=== PATIENT | female | born 2000 | race Caucasian/White ===

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

== ENCOUNTER 2020-05-19 07:44 | Outpatient (CLI) | payer SELFPAY ==
[2020-05-24 01:23] LABS: SARS-CoV-2 RNA Undetected (Undetected); SARS-CoV-2 Specimen Source Nasopharynx
== END 2020-05-19 08:04 ==
PROVIDERS: PCP Nurse Practitioner; Visit Provider Internal Medicine
DX: Z11.59 Encounter for screening for other viral diseases (principal)
CPT/HCPCS: U0003

== ENCOUNTER 2021-06-28 17:24 | Emergency (ER) | payer SELFPAY ==
[2021-06-28 17:36] VITALS: BP 125/83; PULSE 80; RESP 18; TEMP 36.9; O2SAT 97
--- NOTE | 2021-06-28 17:36 | ED.GENADUL_ITS ---
Discharge Plan Disposition Patient Disposition: HOME Condition: Stable Discharge Details Clinical Impression: Finger laceration Primary Care Provider: Yoly Galloway ED Provider: Mandi Palumbo Home Meds and New Rx's Prescriptions: New cephalexin 500 mg capsule 500 mg PO TID 5 Days Qty: 15 RF: 0 Discharge Instructions Instructions: Finger Laceration (ED) Additional Instructions: Keep wound clean and dry. Cover wound with bandage if risk of contamination. Otherwise you can keep the wound open to air if resting at home to allow edges to dry and heal. A prescription for antibiotics was sent electronically to your pharmacy. If you develop any local redness, swelling or pain, start the antibiotics immediately. Return to the emergency department and 1 week for suture removal. Return immediately to the emergency department if you develop any worsening or new concerning symptoms. Discharge Data Discharge Date/Time-TO BE ENTERED AT DEPARTURE: 06/28/21 19:16 Discharge Physician: Mandi Palumbo Medical Decision Making 20yo female who presents with right fifth finger laceration sustained on a broken place of glass while cleaning a glass in the sink at home prior to arrival. She has a 2.5 cm V-shaped linear laceration on the medial aspect of the base of the right fifth finger. No obvious foreign bodies noted. No bony deformity. Wound cleaned in saline and Betadine. Finger anesthetized with digital block and 5 nylon 5-0 sutures placed. Wound dressed. Advised on the importance of proper wound care. Prescription for antibiotics sent electronically to her pharmacy if needed. Advised to return to the ED in 7 days for suture removal. Usual and customary return precautions given prior to discharge. HPI General Mode of arrival: ambulatory . Date/Time Provider Initiated Documentation: 06/28/21 17:36 . Limitations to Documentation: no limitations . Information obtained by: patient . HPI Narrative: Patient is a 20-year-old female presents with laceration to the right fifth finger sustained while cleaning a glass in the sink that broke prior to arrival. Patient states the piece of glass broke and cut her finger. She states the piece of glass is intact and denies any known foreign bodies. Immunizations up-to-date. Related Data Home Medications Medication Instructions Recorded Confirmed cephalexin 500 mg PO TID 5 Days #15 cap 06/28/21 Previous Rx's Medication Instructions Recorded cephalexin 500 mg PO TID 5 Days #15 cap 06/28/21 Allergies Allergy/AdvReac Type Severity Reaction Status Date / Time No Known Allergies Allergy Unverified 06/28/21 17:38 Review of Systems All systems reviewed & are unremarkable except as noted in HPI and below PFSH Medical History (Updated 06/28/21 @ 19:00 by Mandi Palumbo DO) No significant past medical history Surgical History (Updated 06/28/21 @ 18:35 by Mandi Palumbo DO) No significant past surgical history Social History Smoking risk assessment performed?: No Alcohol Intake: current Alcohol Intake frequency: a few times a week Drug use: Occasionally Substance use type: marijuana Do you feel safe at home: Yes Do you feel safe in your relationship?: Yes Exam Const General: cooperative, healthy appearing and no acute distress HENMT Head: normal to inspection Mouth: oral mucosae normal Eyes General: appearance normal, both eyes and all related structures Neck Neck: normal visual inspection Resp Effort & Inspection: normal respiratory effort and able to speak in complete sentences Cardio Rate: regular rate Skin General skin exam: no rashes or lesions noted Neuro General: patient alert, patient awake and patient oriented x3 Motor: muscle tone normal throughout Extrem Hand/finger images: 1. 2.5 cm V-shaped laceration extending through dermis on medial aspect of base of right fifth finger. Edges clean and intact. No foreign bodies noted. Other: Motor/sensory grossly intact to right fifth finger. There is no bony deformity. Psych Appearance: grossly normal Affect: normal affect Procedures Laceration Laceration 1: Side (If applicable): right Size (cm): 2.5 Description: linear (v-shaped) Depth: simple, single layer Amount of anesthesia used (mL): 4 Pre-repair: wound explored and irrigated extensively Skin layer closed with: nylon Size (cm): 5-0 Number of sutures: 5 Technique: simple, interrupted
--- NOTE | 2021-06-28 19:05 | NUR.NOTE ---
Nursing Note: Right finger wound and hand cleansed. Bacitracin oint applied to wound and band aid applied over wound.
== END 2021-06-28 19:16 | disposition home or self-care (01) ==
PROVIDERS: Emergency Provider Physician Assistant; PCP Nurse Practitioner
DX: S61.216A Laceration without foreign body of right little finger without damage to nail, initial encounter (principal); W25.XXXA Contact with sharp glass, initial encounter
CPT/HCPCS: 12001

== ENCOUNTER 2021-08-27 13:21 | Outpatient (REF) | payer SELFPAY ==
[2021-08-29 02:26] LABS: COVID-19 RT-PCR UVMMC Result Negative (Negative)
== END 2021-08-27 13:22 | disposition home or self-care (01) ==
LOC: LBN 13:21
PROVIDERS: PCP Nurse Practitioner; Visit Provider Internal Medicine
DX: Z20.822 Contact with and (suspected) exposure to COVID-19 (principal)
CPT/HCPCS: U0003

== ENCOUNTER 2022-10-23 16:32 | Emergency (ER) | payer SELFPAY ==
[2022-10-23 16:43] VITALS: BP 128/70; PULSE 108; RESP 18; TEMP 37.2; O2SAT 97
--- NOTE | 2022-10-23 18:00 | RT.EKG_ITS ---
APPROVED REPORT Exam: Resting ECG Reason for Exam: DIZZY Patient Location: E HR:90 bpm ECG Measurements Heart Rate 90 AXIS MA 147 P 40 QRSd 97 QRS 32 QT 333 T 15 QTc 407 Conclusion Sinus rhythm...normal P axis, V-rate 60- 99 Probable left atrial enlargement...P >50mS, <-0.10mV V1
[2022-10-23] MEDS: Normal Saline 1,000 ML 1000 ML IV (18:08)
[2022-10-23 18:13] LABS: Abs Immature Grans 0.04 10^3/uL (0.0-0.06); Absolute Basophil Count 0.04 10^3/uL (0.0-0.2); Absolute Eosinophil Count 0.01 10^3/uL (0.0-0.7); Absolute Lymphocyte Count 0.43 10^3/uL (1.2-3.4); Absolute Monocyte Count 1.36 10^3/uL (0.1-0.8); Absolute Neutrophil Count 6.54 10^3/uL (1.2-6.7); Basophils % 0.5; Eosinophils % 0.1; HCT 40.3 % (36.0-46.0); HGB 13.4 g/dL (11.2-15.7); Immature Grans % 0.5; Lymphocytes % 5.1; MCH 29.4 pg (27.0-33.0); MCHC 33.3 % (32.0-36.0); MCV 88 fL (80-95); Monocytes % 16.2; Neutrophils % 77.6; Platelet Count 180 10^3/uL (130-400); RBC 4.56 10^6/uL (3.93-5.22); RDW 12.2 % (11.7-14.6); RDW-SD 39.8 fL; WBC 8.42 10^3/uL (4.4-10.8)
[2022-10-23 18:29] LABS: ALT 29 U/L (14-59); AST 44 U/L (15-37); Albumin 4.2 g/dL (3.4-5.0); Alkaline Phosphatase 74 U/L (46-116); Anion Gap 12.9 mmol/L (3-11); BUN 10 mg/dL (7-18); Bilirubin, Total 0.5 mg/dL (0.2-1.0); CO2 24.1 mmol/L (21.0-32.0); CREATININE 0.8 mg/dL (0.55-1.02); Calcium 8.7 mg/dL (8.5-10.1); Chloride 99 mmol/L (98-107); Estimated GFR 106.77 (mL/min/1.73m2); Glucose 100 mg/dL (74-106); Magnesium 1.5 mg/dL (1.8-2.4); Potassium 3.6 mmol/L (3.5-5.1); Sodium 136 mmol/L (136-145); Total Protein 8.6 g/dL (6.4-8.2)
[2022-10-23 18:43] LABS: D-Dimer 328 ng/mlFEU (<500)
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
[2022-10-23 18:49] LABS: COVID-19 PCR Negative (Negative); Influenza A PCR Positive (Negative); Influenza B PCR Negative (Negative); RSV PCR Negative (Negative)
[2022-10-23 18:50] LABS: Source Nasopharynx
--- NOTE | 2022-10-23 19:13 | DI.VRAD_ITS ---
PROCEDURE INFORMATION: Exam: XR Chest Exam date and time: 10/23/2022 6:42 PM Age: 22 years old Clinical indication: Cough TECHNIQUE: Imaging protocol: Radiologic exam of the chest. Views: 1 view. COMPARISON: No relevant prior studies available. FINDINGS: Lungs: Chronic interstitial prominence. No consolidation. Pleural spaces: Unremarkable. No pleural effusion. No pneumothorax. Heart/Mediastinum: Unremarkable. No cardiomegaly. Bones/joints: Unremarkable. IMPRESSION: No radiographic evidence for pneumonia Chronic findings. Comparison with prior images would be helpful Dictated and Authenticated by: Vidal Huerta MD. Ordering:LUCIE Moss MD
[2022-10-23] MEDS: MAGNESIUM SULFATE 1 GM/100 ML BAG IVPB (19:14)
[2022-10-23 20:33] VITALS: BP 115/73; PULSE 90; RESP 16; TEMP 36.7; O2SAT 98
--- NOTE | 2022-10-23 20:43 | ED.GENADUL_ITS ---
Discharge Plan Disposition Patient Disposition: Home Condition: Improving Discharge Details Clinical Impression: Influenza A Primary Care Provider: Yoly Galloway ED Provider: Ajay Castillo Home Meds and New Rx's Prescriptions: No Action No Known Home Meds Discharge Instructions Instructions: Influenza (ED) Additional Instructions: Home to rest tonight. Small, frequent sips of fluids to maintain hydration Return to ER for any acute concerns Stand Alone Forms: Work Release Discharge Data Discharge Date/Time-TO BE ENTERED AT DEPARTURE: 10/23/22 22:03 Medical Decision Making 22-year-old female here with dizziness today, URI symptoms over the past week. Patient saturating well no respiratory distress but is slightly tachycardic on arrival. Considered arrhythmia. EKG was reviewed and interpreted by me: Please see report, sinus rhythm. Consider pneumonia. Chest x-ray was reviewed and interpreted by radiology: No radiographic evidence for pneumonia Considered pulmonary embolism. Patient low risk by Wells criteria. D-dimer was checked and negative. Hypomagnesemia noted. Patient was given magnesium 1 g IV. COVID testing performed and negative. Flu testing performed and positive. Plan for supportive care. Patient was reassessed and tachycardia resolved. Patient stable. Usual customary discharge instructions were reviewed with the patient. Lab Data Lab results reviewed: Yes I reviewed the patient's lab results. Labs: Laboratory Tests Range/Units 10/23/22 10/23/22 10/23/22 18:00 18:00 18:00 WBC (4.4-10.8) 10^3/uL 8.42 RBC (3.93-5.22) 10^6/uL 4.56 Hgb (11.2-15.7) g/dL 13.4 Hct (36.0-46.0) % 40.3 MCV (80-95) fL 88 MCH (27.0-33.0) pg 29.4 MCHC (32.0-36.0) % 33.3 RDW (11.7-14.6) % 12.2 Plt Count (130-400) 10^3/uL 180 MPV (8.0-11.0) fL 9.0 Immature Gran % 0.5 Neutrophils % 77.6 Lymphocytes % 5.1 Monocytes % 16.2 Eosinophils % 0.1 Basophils % 0.5 Nucleated RBC % (0.0-0.3) % 0.0 Absolute Neutrophils (1.2-6.7) 10^3/uL 6.54 Absolute Lymphocytes (1.2-3.4) 10^3/uL 0.43 L Absolute Monocytes (0.1-0.8) 10^3/uL 1.36 H Absolute Eosinophils (0.0-0.7) 10^3/uL 0.01 Absolute Basophils (0.0-0.2) 10^3/uL 0.04 D-Dimer (<500) ng/mlFEU Sodium (136-145) mmol/L 136 Potassium (3.5-5.1) mmol/L 3.6 Chloride (98-107) mmol/L 99 Carbon Dioxide (21.0-32.0) mmol/L 24.1 Anion Gap (3-11) mmol/L 12.9 H BUN (7-18) mg/dL 10 Creatinine (0.55-1.02) mg/dL 0.8 Est GFR (CKD-EPI 2020) (mL/min/1.73m2) 106.77 Glucose (74-106) mg/dL 100 Calcium (8.5-10.1) mg/dL 8.7 Magnesium (1.8-2.4) mg/dL 1.5 L Total Bilirubin (0.2-1.0) mg/dL 0.5 AST (15-37) U/L 44 H ALT (14-59) U/L 29 Alkaline Phosphatase (46-116) U/L 74 Total Protein (6.4-8.2) g/dL 8.6 H Albumin (3.4-5.0) g/dL 4.2 COVID-19 Source Nasopharynx SARS-CoV-2 (PCR) (Negative) Negative Influenza Type A (PCR) (Negative) Positive A Influenza Type B (PCR) (Negative) Negative RSV (PCR) (Negative) Negative Range/Units 10/23/22 18:00 WBC (4.4-10.8) 10^3/uL RBC (3.93-5.22) 10^6/uL Hgb (11.2-15.7) g/dL Hct (36.0-46.0) % MCV (80-95) fL MCH (27.0-33.0) pg MCHC (32.0-36.0) % RDW (11.7-14.6) % Plt Count (130-400) 10^3/uL MPV (8.0-11.0) fL Immature Gran % Neutrophils % Lymphocytes % Monocytes % Eosinophils % Basophils % Nucleated RBC % (0.0-0.3) % Absolute Neutrophils (1.2-6.7) 10^3/uL Absolute Lymphocytes (1.2-3.4) 10^3/uL Absolute Monocytes (0.1-0.8) 10^3/uL Absolute Eosinophils (0.0-0.7) 10^3/uL Absolute Basophils (0.0-0.2) 10^3/uL D-Dimer (<500) ng/mlFEU 328 Sodium (136-145) mmol/L Potassium (3.5-5.1) mmol/L Chloride (98-107) mmol/L Carbon Dioxide (21.0-32.0) mmol/L Anion Gap (3-11) mmol/L BUN (7-18) mg/dL Creatinine (0.55-1.02) mg/dL Est GFR (CKD-EPI 2020) (mL/min/1.73m2) Glucose (74-106) mg/dL Calcium (8.5-10.1) mg/dL Magnesium (1.8-2.4) mg/dL Total Bilirubin (0.2-1.0) mg/dL AST (15-37) U/L ALT (14-59) U/L Alkaline Phosphatase (46-116) U/L Total Protein (6.4-8.2) g/dL Albumin (3.4-5.0) g/dL COVID-19 Source SARS-CoV-2 (PCR) (Negative) Influenza Type A (PCR) (Negative) Influenza Type B (PCR) (Negative) RSV (PCR) (Negative) HPI General Mode of arrival: ambulatory . Date/Time Provider Initiated Documentation: 10/23/22 17:28 . Limitations to Documentation: no limitations . Information obtained by: patient . HPI Narrative: 22-year-old female here with cold symptoms of the past 1 week. Today she notes associated lightheadedness and dizziness. Lightheadedness moderate. No modifiers. She continues to have some associated achiness, cough and congestion. Patient works at [employer] and [employer] and has been testing herself for COVID 3 times a day. Test of been negative to date. Related Data Home Medications Medication Instructions Recorded Confirmed Unknown [No Known Home Meds] 10/23/22 10/23/22 Allergies Allergy/AdvReac Type Severity Reaction Status Date / Time No Known Allergies Allergy Unverified 10/23/22 16:48 General Stated Complaint: Dizzy/Sync JUNIOR: 3 Review of Systems All systems reviewed & are unremarkable except as noted in HPI and below Constitutional Constitutional: Reports as per HPI and Reports lethargy ENT Comments: Congestion Respiratory Respiratory: Reports cough PFSH All Active Problems Finger laceration (Acute) Influenza A (Acute) Medical History No significant past medical history Surgical History No significant past surgical history Social History Smoking/Tobacco Use Status: Current every day Tobacco Type: e-cigarettes Smoking risk assessment performed?: Yes Alcohol Intake: current Alcohol Intake frequency: a few times a week Drug use: Occasionally Substance use type: marijuana Do you feel safe at home: Yes Do you feel safe in your relationship?: Yes Exam Const General: cooperative and no acute distress HENMT Mouth: moist mucous membranes Throat: posterior oropharynx normal Eyes Conjunctivae: normal conjunctivae Sclera: normal sclerae Neck Neck: trachea midline and supple Resp Auscultation: clear to auscultation bilaterally, no rales, no rhonchi and no wheezes Cardio Rate: regular rate and not tachycardic Rhythm: regular rhythm GI Palpation: soft, not firm, no guarding, no masses, not rigid and nontender Skin General skin exam: no rashes or lesions noted Neuro General: patient alert, patient awake, patient oriented x3 and tone normal Extrem General: no edema Course Vital Signs Vital signs: Vital Signs Temperature 37.2 C 10/23/22 16:43 Pulse 108 H 10/23/22 16:43 Respiratory Rate 18 10/23/22 16:43 Blood Pressure 128/70 10/23/22 16:43 Pulse Oximetry 97 10/23/22 16:43 Temperature 36.7 C 10/23/22 20:33 Temperature Source Tympanic 10/23/22 20:33 Pulse 90 10/23/22 20:33 Respiratory Rate 16 10/23/22 20:33 Respiratory Effort Non-Labored 10/23/22 16:46 Blood Pressure 115/73 10/23/22 20:33 Blood Pressure Position Sitting 10/23/22 16:43 Pulse Oximetry 98 10/23/22 20:33 Oxygen Delivery Method Room Air 10/23/22 20:33 Oxygen Flow Rate 0 10/23/22 20:33 Pain Level 6 10/23/22 16:43 Lab/Test Results Lab/Test Results: Laboratory Tests Range/Units 10/23/22 10/23/22 10/23/22 18:00 18:00 18:00 WBC (4.4-10.8) 10^3/uL 8.42 RBC (3.93-5.22) 10^6/uL 4.56 Hgb (11.2-15.7) g/dL 13.4 Hct (36.0-46.0) % 40.3 MCV (80-95) fL 88 MCH (27.0-33.0) pg 29.4 MCHC (32.0-36.0) % 33.3 RDW (11.7-14.6) % 12.2 Plt Count (130-400) 10^3/uL 180 MPV (8.0-11.0) fL 9.0 Immature Gran % 0.5 Neutrophils % 77.6 Lymphocytes % 5.1 Monocytes % 16.2 Eosinophils % 0.1 Basophils % 0.5 Nucleated RBC % (0.0-0.3) % 0.0 Absolute Neutrophils (1.2-6.7) 10^3/uL 6.54 Absolute Lymphocytes (1.2-3.4) 10^3/uL 0.43 L Absolute Monocytes (0.1-0.8) 10^3/uL 1.36 H Absolute Eosinophils (0.0-0.7) 10^3/uL 0.01 Absolute Basophils (0.0-0.2) 10^3/uL 0.04 D-Dimer (<500) ng/mlFEU Sodium (136-145) mmol/L 136 Potassium (3.5-5.1) mmol/L 3.6 Chloride (98-107) mmol/L 99 Carbon Dioxide (21.0-32.0) mmol/L 24.1 Anion Gap (3-11) mmol/L 12.9 H BUN (7-18) mg/dL 10 Creatinine (0.55-1.02) mg/dL 0.8 Est GFR (CKD-EPI 2020) (mL/min/1.73m2) 106.77 Glucose (74-106) mg/dL 100 Calcium (8.5-10.1) mg/dL 8.7 Magnesium (1.8-2.4) mg/dL 1.5 L Total Bilirubin (0.2-1.0) mg/dL 0.5 AST (15-37) U/L 44 H ALT (14-59) U/L 29 Alkaline Phosphatase (46-116) U/L 74 Total Protein (6.4-8.2) g/dL 8.6 H Albumin (3.4-5.0) g/dL 4.2 COVID-19 Source Nasopharynx SARS-CoV-2 (PCR) (Negative) Negative Influenza Type A (PCR) (Negative) Positive A Influenza Type B (PCR) (Negative) Negative RSV (PCR) (Negative) Negative Range/Units 10/23/22 18:00 WBC (4.4-10.8) 10^3/uL RBC (3.93-5.22) 10^6/uL Hgb (11.2-15.7) g/dL Hct (36.0-46.0) % MCV (80-95) fL MCH (27.0-33.0) pg MCHC (32.0-36.0) % RDW (11.7-14.6) % Plt Count (130-400) 10^3/uL MPV (8.0-11.0) fL Immature Gran % Neutrophils % Lymphocytes % Monocytes % Eosinophils % Basophils % Nucleated RBC % (0.0-0.3) % Absolute Neutrophils (1.2-6.7) 10^3/uL Absolute Lymphocytes (1.2-3.4) 10^3/uL Absolute Monocytes (0.1-0.8) 10^3/uL Absolute Eosinophils (0.0-0.7) 10^3/uL Absolute Basophils (0.0-0.2) 10^3/uL D-Dimer (<500) ng/mlFEU 328 Sodium (136-145) mmol/L Potassium (3.5-5.1) mmol/L Chloride (98-107) mmol/L Carbon Dioxide (21.0-32.0) mmol/L Anion Gap (3-11) mmol/L BUN (7-18) mg/dL Creatinine (0.55-1.02) mg/dL Est GFR (CKD-EPI 2020) (mL/min/1.73m2) Glucose (74-106) mg/dL Calcium (8.5-10.1) mg/dL Magnesium (1.8-2.4) mg/dL Total Bilirubin (0.2-1.0) mg/dL AST (15-37) U/L ALT (14-59) U/L Alkaline Phosphatase (46-116) U/L Total Protein (6.4-8.2) g/dL Albumin (3.4-5.0) g/dL COVID-19 Source SARS-CoV-2 (PCR) (Negative) Influenza Type A (PCR) (Negative) Influenza Type B (PCR) (Negative) RSV (PCR) (Negative) PAWSS Have you Been Recently Intoxicated or Drunk Within the Last 30 days?: No Have you Ever Experienced Previous Episodes of Alcohol Withdrawal?: No Have you ever Experienced Withdrawal Seizures?: No Have you ever Experienced Delirium Tremens(DT)s?: No Have you ever undergone Alcohol Rehabilitation Treatment (i.e, inpt ot outpatient treatment programs)?: No Have you ever Experienced Blackouts?: No Have you ever Combined Alcohol with other Downers within the last 90 days?: No Have you ever Combined Alcohol with any other Substance of Abuse during the last 90 days?: No Positive Blood Alcohol level on Presentation? [PCS.BAL]: No Evidence of Increased Autonomic Activity (i.e. HR>120, tremor, sweating, agitation, nausea)?: No Result: 0
[2022-10-23 21:57] VITALS: BP 113/72; PULSE 82; RESP 16; TEMP 36.8; O2SAT 98
== END 2022-10-23 22:03 | disposition home or self-care (01) ==
PROVIDERS: Emergency Provider Student in an Organized Health Care Education/Training Program; PCP Nurse Practitioner
DX: J10.1 Influenza due to other identified influenza virus with other respiratory manifestations (principal); E83.42 Hypomagnesemia; I26.99 Other pulmonary embolism without acute cor pulmonale; Z20.822 Contact with and (suspected) exposure to COVID-19
CPT/HCPCS: 36415; 80053; 87637; 93005; 96361; 96365; 99284; 71045; 83735; 85025; 85379; 93010; 99285; J3475

== ENCOUNTER 2023-03-23 17:04 | Outpatient (REF) | payer SELFPAY ==
[2023-03-23 20:52] LABS: Abs Immature Grans 0.02 10^3/uL (0.0-0.06); Absolute Basophil Count 0.06 10^3/uL (0.0-0.2); Absolute Eosinophil Count 0.09 10^3/uL (0.0-0.7); Absolute Lymphocyte Count 2.78 10^3/uL (1.2-3.4); Absolute Monocyte Count 1.01 10^3/uL (0.1-0.8); Absolute Neutrophil Count 4.94 10^3/uL (1.2-6.7); Basophils % 0.7; HCT 35.7 % (36.0-46.0); HGB 11.9 g/dL (11.2-15.7); Immature Grans % 0.2; Lymphocytes % 31.2; MCHC 33.3 % (32.0-36.0); MCV 90 fL (80-95); MPV 9.2 fL (8.0-11.0); Monocytes % 11.3; Neutrophils % 55.6; Platelet Count 215 10^3/uL (130-400); RBC 3.97 10^6/uL (3.93-5.22); RDW 13.2 % (11.7-14.6); RDW-SD 43.5 fL
[2023-03-23 21:19] LABS: ALT 30 U/L (14-59); AST 56 U/L (15-37); Albumin 3.9 g/dL (3.4-5.0); Alkaline Phosphatase 65 U/L (46-116); Anion Gap 10.6 mmol/L (3-11); BUN 8 mg/dL (7-18); Bilirubin, Total 0.8 mg/dL (0.2-1.0); CO2 24.4 mmol/L (21.0-32.0); CREATININE 0.7 mg/dL (0.55-1.02); Calcium 8.7 mg/dL (8.5-10.1); Chloride 101 mmol/L (98-107); Estimated GFR 125.33 (mL/min/1.73m2); Glucose 91 mg/dL (74-106); Potassium 3.6 mmol/L (3.5-5.1); Sodium 136 mmol/L (136-145); TSH (W/Ref FT4) 1.44 uIU/mL (0.36-3.74); Total Protein 8.2 g/dL (6.4-8.2)
== END 2023-03-23 17:05 | disposition home or self-care (01) ==
LOC: NCHCN 17:04
PROVIDERS: PCP Nurse Practitioner; Visit Provider Family Medicine
DX: F41.8 Other specified anxiety disorders (principal); F10.20 Alcohol dependence, uncomplicated
CPT/HCPCS: 80053; 84443; 85025

== ENCOUNTER 2023-05-05 19:11 | Emergency (ER) | payer SELFPAY ==
[2023-05-05] VITALS (10 sets, daily range): BP systolic 128–144; BP diastolic 90–103; PULSE 16–112; RESP 11–102; TEMP 36.2; O2SAT 70–100
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
[2023-05-05] MEDS: Omnipaque 350 MG/ML 100 ML BTL IJ (19:35)
[2023-05-05] MEDS: Normal Saline - Diluent 50 ML VIAL IJ (19:36)
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
[2023-05-05 20:19] LABS: Abs Immature Grans 0.05 10^3/uL (0.0-0.06); Absolute Basophil Count 0.05 10^3/uL (0.0-0.2); Absolute Eosinophil Count 0.08 10^3/uL (0.0-0.7); Absolute Lymphocyte Count 1.55 10^3/uL (1.2-3.4); Absolute Monocyte Count 0.88 10^3/uL (0.1-0.8); Absolute Neutrophil Count 6.46 10^3/uL (1.2-6.7); Basophils % 0.6; Eosinophils % 0.9; HCT 38.9 % (36.0-46.0); HGB 12.9 g/dL (11.2-15.7); Immature Grans % 0.6; Lymphocytes % 17.1; MCH 31.7 pg (27.0-33.0); MCHC 33.2 % (32.0-36.0); MCV 96 fL (80-95); MPV 8.1 fL (8.0-11.0); Monocytes % 9.7; Neutrophils % 71.1; Platelet Count 146 10^3/uL (130-400); RBC 4.07 10^6/uL (3.93-5.22); RDW 14.2 % (11.7-14.6); RDW-SD 50.3 fL; WBC 9.07 10^3/uL (4.4-10.8)
[2023-05-05] MEDS: ACETAMINOPHEN 1,000 MG/100 ML BTL 400 MG IVPB (20:22)
[2023-05-05] MEDS: Normal Saline 1,000 ML 1000 ML IV (20:23)
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
[2023-05-05 20:34] LABS: ALT 35 U/L (14-59); AST 89 U/L (15-37); Albumin 3.8 g/dL (3.4-5.0); Alkaline Phosphatase 78 U/L (46-116); Anion Gap 10.2 mmol/L (3-11); BUN 6 mg/dL (7-18); Bilirubin, Total 0.3 mg/dL (0.2-1.0); CO2 25.8 mmol/L (21.0-32.0); CREATININE 0.7 mg/dL (0.55-1.02); Chloride 102 mmol/L (98-107); Estimated GFR 125.33 (mL/min/1.73m2); Glucose 96 mg/dL (74-106); Potassium 3.5 mmol/L (3.5-5.1); Sodium 138 mmol/L (136-145); Total Protein 8.2 g/dL (6.4-8.2)
[2023-05-05] MEDS: Cyclobenzaprine 10 MG TAB PO (21:18)
[2023-05-05] MEDS: Lidocaine 5% Patch 1 PATCH TP (21:18)
== END 2023-05-05 21:20 | disposition home or self-care (01) ==
PROVIDERS: Emergency Provider Emergency Medicine; PCP Nurse Practitioner Family
DX: M54.89 Other dorsalgia (principal); S80.11XA Contusion of right lower leg, initial encounter; V48.0XXA Car driver injured in noncollision transport accident in nontraffic accident, initial encounter
CPT/HCPCS: 36415; 73552; 74177; 80053; 81025; 96365; 99285; 70450; 71260; 72125; 73590; 85025; 99284; J0131; J3490